=== PATIENT | female | born 1995 | race Caucasian/White ===

== ENCOUNTER 2017-04-28 07:36 | Emergency (ER) | payer OTHER ==
[~2017-04-28] VITALS: Ht 180.3 cm; Wt 90.0 kg
[2017-04-28 07:44] VITALS: BP 120/77; PULSE 102; RESP 18; TEMP 97.4; O2SAT 96
--- NOTE | 2017-04-28 07:49 | PD ---
HPI Chief Complaint: wheezing Time Seen by Provider: 07:46 Travel History International Travel<30 days: No Contact w/Intl Traveler<30days: No History of Present Illness HPI after smoking pot started to feel wheezing, has h/o asthma...denies f/n/v/cough with sputum...ems gave albuterol x3 and solumedrol 125 enroute...pt is currently symptom free PFSH Social History Tobacco Use: No Allergies-Medications (Allergen,Severity, Reaction): Coded Allergies: No Known Allergies (Unverified , 04/28/17) Reported Meds & Prescriptions Reported Meds & Active Scripts Active Reported Proventil Hfa 6.7 GM Inh (Albuterol Sulfate) Unknown Strength Aer Unknown Dose INH Q4-6H PRN Albuterol Neb (Albuterol Sulfate) Unknown Strength Neb Unknown Dose NEB Q6HR NEB PRN [Lonstruf] 3 Tab PO BID Review of Systems Except as stated in HPI: all other systems reviewed are Neg Respiratory: Positive: Shortness of Breath Physical Exam Narrative GENERAL: SKIN: Warm and dry. HEAD: Atraumatic. Normocephalic. EYES: Pupils equal and round. No scleral icterus. No injection or drainage. ENT: No nasal bleeding or discharge. Mucous membranes pink and moist. NECK: Trachea midline. No JVD. CARDIOVASCULAR: Regular rate and rhythm. RESPIRATORY: No accessory muscle use. Clear to auscultation. Breath sounds equal bilaterally. GASTROINTESTINAL: Abdomen soft, non-tender, nondistended. Hepatic and splenic margins not palpable. MUSCULOSKELETAL: Extremities without clubbing, cyanosis, or edema. No obvious deformities. NEUROLOGICAL: Awake and alert. No obvious cranial nerve deficits. Motor grossly within normal limits. Five out of 5 muscle strength in the arms and legs. Normal speech. PSYCHIATRIC: Appropriate mood and affect; insight and judgment normal. Data Data Last Documented VS Vital Signs Date Time Temp Pulse Resp B/P Pulse Ox O2 Delivery O2 Flow Rate FiO2 04/28/17 07:53 18 96 Room Air 04/28/17 07:44 97.4 102 120/77 Orders Chest, Single Ap (04/28/17 07:50) Oximetry (04/28/17 07:50) MDM Medical Decision Making Medical Screen Exam Complete: Yes Emergency Medical Condition: Yes Medical Record Reviewed: Yes Differential Diagnosis eval for pna Narrative Course patient has known h/o asthma, along with irritant to cause exacerbation, vitals including pulse ox is wnl, currently on eval pt lung max are clear, if cxr clear will d/c with medrol dosepak and albuterol inh Diagnosis Primary Impression: Wheezing Patient Instructions: Asthma (ED), General Instructions Med/Other Pt SpecificInfo: Prescription(s) given Scripts Albuterol 18 GM Inh (Ventolin Hfa 18 GM Inh)90 Mcg/Act Aer2 Puff INH Q6H PRN ( SHORTNESS OF BREATH) #1 INHALER Ref 0 Prov:Cy Kerr MD 04/28/17 Methylprednisolone Dosepak (Medrol Dosepak)4 Mg Dspk4 Mg PO DIRECTED #1 DSPK Ref 0 Per Pharmacist direction Prov:yC Kerr MD 04/28/17 Disposition: 01 DISCHARGE HOME Condition: Stable Cy Kerr MD Apr 28, 2017 07:49
[2017-04-28 07:53] VITALS: RESP 18; O2SAT 96
[2017-04-28] MEDS ORDERED: [UNRECOGNIZED DRUG - OTHER] PO (07:55)
[2017-04-28] MEDS ORDERED: ALBU6.7H INH (07:55)
[2017-04-28] MEDS ORDERED: ALBU0.63 NEB (07:55)
[2017-04-28] MEDS ORDERED: MEDR4PAK PO (08:21)
[2017-04-28] MEDS ORDERED: VENTAER INH (08:21)
--- NOTE | 2017-04-28 08:24 | RADRPT ---
EXAM DATE/TIME: 04/28/2017 08:05 [facility] COMPARISON: No previous studies available for comparison. INDICATIONS : Shortness of breath today. MEDICAL HISTORY : Asthma. Lung cancer. Colorectal cancer. SURGICAL HISTORY : Left lower lobectomy. Infusaport. ENCOUNTER: Initial ACUITY: 1 day PAIN SCORE: 0/10 LOCATION: Bilateral chest FINDINGS: The heart is normal in size. The [id number] in good position. The mediastinal contour is within no rmal limits. There is elevation of the right hemidiaphragm with small areas of atelectasis in the lee g bases. The visualized bony structures are intact. CONCLUSION: 1. There are small areas of atelectasis or scarring in the lung bases. 2. [id number] in good position. Isar Ellington MD on April 28, 2017 at 8:21 Board Certified Radiologist. This report was verified electronically.
== END 2017-04-28 09:19 | disposition home or self-care (01) ==
LOC: NEPC 07:36
DX: R06.2 Wheezing (principal); Z87.09 Personal history of other diseases of the respiratory system
CPT/HCPCS: 71010; 99284